=== PATIENT | female | born 1935 | race African-American/Black ===

== ENCOUNTER 2016-12-23 04:29 | Inpatient (IN) | payer MEDICARE, OTHER ==
[~2016-12-23] VITALS: Ht 167.6 cm; Wt 59.0 kg
[2016-12-23] VITALS (7 sets, daily range): BP systolic 102–141; BP diastolic 59–106
[~2016-12-23 04:29] MED LIST: ASPIRIN81 MG ORAL; BUDESONIDE0.25 MG/2 IH; DOCUSATE SODIU100 M2 ORAL; DULCOLAX10 MG RC; DUONEB 0.5-3(2.53 ML HHN; FLEET ENEMA133 M1 RC; FUROSEMIDE40 MG ORAL; LASIX; LISINOPRIL; MILK OF MA400 MG/51 ORAL; NKM; NORCO 5-325 TA1 EAC1 ORAL; NORVASC; PLAVIX75 MG ORAL; PREDNISONE; PROMOD946 ML PO; PROTONIX40 MG ORAL; TYLENOL325 MG ORAL; VICODIN; VITAMIN C500 M7 PO; ZINC SULFATE220 M2 ORAL
[2016-12-23] MEDS ORDERED: Albuterol ud Inhalation ONE (04:35)
[2016-12-23] MEDS ORDERED: Ipratropium 0.02% Inh Soln 2.5ml UD ONE (04:35)
[2016-12-23] MEDS ORDERED: Ipratropium 0.02% Inh Soln 2.5ml UD HHN ONE (04:45)
[2016-12-23] MEDS ORDERED: Solu-MEDROL 125mg Inj IVP ONE (04:45)
[2016-12-23] MEDS ORDERED: Albuterol ud Inhalation HHN ONE ×2 (04:45→06:00)
[2016-12-23 05:03] LABS: BASOPHILS % (AUTO) 0.7 % (0.0-2.0); EOSINOPHILS % (AUTO) 0.3 % (0.0-3.0); LYMPHOCYTES % (AUTO) 16.7 % (20.0-45.0); MEAN CORPUSCULAR HEMOGLOBIN 23.9 PG (27.0-31.0); MEAN CORPUSCULAR HGB CONC 29.3 G/DL (32.0-36.0); MEAN CORPUSCULAR VOLUME 82 FL (80-99); MEAN PLATELET VOLUME 9.1 FL (6.5-10.1); MONOCYTES % (AUTO) 5.1 % (1.0-10.0); NEUTROPHILS % (AUTO) 77.2 % (45.0-75.0); PLATELET COUNT 199 K/UL (150-450); RED BLOOD COUNT 5.37 M/UL (4.20-5.40); RED CELL DISTRIBUTION WIDTH 18.2 % (11.6-14.8)
[2016-12-23 05:20] LABS: REFLEX LACTIC ACID YES OR NO YES
[2016-12-23 05:44] LABS: APPEARANCE,URINE CLEAR; KETONES,URINE 1+ (NEGATIVE); LEUKOCYTE ESTERASE ,URINE 1+ (NEGATIVE); NITRITE,URINE NEGATIVE (NEGATIVE); PH,URINE 5 (4.5-8.0); PROTEIN,URINE 2+ (NEGATIVE); UROBILINOGEN,URINE NORMAL MG/DL (0.0-1.0)
[2016-12-23] MEDS ORDERED: Diltiazem 25mg/5ml IV ONE ×3 (06:00→06:30)
[2016-12-23 06:03] LABS: ALANINE AMINOTRANSFERASE 7 U/L (3-33); ALBUMIN/GLOBULIN RATIO 1.1 (1.0-2.7); ANION GAP 17 (5-15); ASPARTATE AMINO TRANSFERASE 22 U/L (5-40); CALCIUM 9.6 mg/dL (8.6-10.2); CARBON DIOXIDE 33 mEQ/L (20-30); CHLORIDE 96 mEQ/L (98-107); HEMOLYSIS 1; POTASSIUM 4.5 mEQ/L (3.4-4.9); SODIUM 146 mEQ/L (135-145); TOTAL PROTEIN 7.6 g/dL (6.6-8.7)
[2016-12-23 06:04] LABS: AMORPHOUS SEDIMENT,UR MODERATE /LPF; BACTERIA,URINE FEW /HPF; SQUAMOUS EPITHELIAL CELL,UR FEW /LPF (NONE/OCC); WBC,URINE 0-2 /HPF (0 - 2)
[2016-12-23 06:05] LABS: TROPONIN I < 0.30 ng/mL (<=0.30)
[2016-12-23 06:14] LABS: CKMB 5.9 ng/mL (< 3.8)
--- NOTE | 2016-12-23 06:26 | Emergency Room Report ---
History of Present Illness General Chief Complaint: Dyspnea/Respdistress Source: Patient, Medical Record, EMS Present Illness HPI This is an 81-year-old debilitated female from [place] with history of COPD. She presents with shortness of breath started today. No fever or chills. No nausea no vomiting. No chest pain. Coughing and wheezing. Per EMS she was hypoxic. Denies any other complaint. Allergies: Coded Allergies: PENICILLINS (Verified Allergy, Unknown, 03/22/09) Patient History Past Medical History: see triage record, old chart reviewed, HTN, COPD Past Surgical History: other Pertinent Family History: none Social History: Denies: smoking Now: No Immunizations: other Reviewed Nursing Documentation: PMH: Agreed, PSxH: Agreed Nursing Documentation-PMH Hx Cardiac Problems: Yes Hx Hypertension: Yes Hx Pacemaker: Yes - Left Upper Chest Hx COPD: Yes Hx Cancer: No Hx Gastrointestinal Problems: Yes Hx Neurological Problems: No Review of Systems Eye: Denies: blurred vision, eye pain ENT: Denies: ear pain, nose congestion, throat swelling Respiratory: Reports: shortness of breath, wheezing Cardiovascular: Denies: chest pain, palpitations Gastrointestinal: Denies: abdominal pain, diarrhea, nausea, vomiting Musculoskeletal: Denies: back pain, joint pain Skin: Denies: rash Neurological: Denies: headache, numbness Endocrine: Denies: increased thirst, increased urine Hematologic/Lymphatic: Denies: easy bruising All Other Systems: negative except mentioned in HPI Physical Exam Vital Signs Date Time Temp Pulse Resp B/P Pulse Ox O2 Delivery O2 Flow Rate FiO2 12/23/16 04:37 97.2 138 38 155/88 92 8.0 12/23/16 04:45 Nasal Cannula 32 vitals with tachycardia Sp02 EP Interpretation: abnormal General Appearance: moderate distress, cachetic, thin, Chronically Ill Head: normocephalic, atraumatic Eyes: bilateral eye EOMI, bilateral eye PERRL ENT: hearing grossly normal, normal pharynx Neck: full range of motion, supple, no meningismus Respiratory: chest non-tender, respiratory distress, decreased breath sounds, wheezing Cardiovascular #1: no murmur, tachycardia Gastrointestinal: normal bowel sounds, non tender, no mass, no organomegaly, no bruit, non-distended Musculoskeletal: back normal, normal range of motion Psychiatric: mood/affect normal Skin: warm/dry Procedures Critical Care Time Critical Care Time Critical care is mandated in this patient who presented with respiratory distress and rapid afib. Patient require my urgent intervention to attenuate the risks of metabolic collapse which may lead to cardiovascular collapse and . Critical care time is 35 minutes excluding any reportable procedure. Critical care time included evaluation, multiple reevaluation, looking at old charts, interpreting laboratory and diagnostic data, discussing case with patient and family and consultants, and charting. Medical Decision Making Diagnostic Impression: Primary Impression: COPD (chronic obstructive pulmonary disease) Qualified Codes: J42 - Unspecified chronic bronchitis Additional Impressions: Respiratory distress Rapid atrial fibrillation Proteinuria ER Course Patient presents with COPD exacerbation. She looks euvolemic said her fluid overloaded. Chest x-ray showed no infiltrate. She does have cardiomegaly and pacemaker. Antibiotic started. heart rate elevated may be a combination of rapid A. fib and albuterol. Heart rate better with Cardizem. Wheezing improved. Will admit for further workup and antibiotics. I discussed with her primary care DrElena Lab Results Impression labs unremarkable EKG Diagnostic Results Rate: tachycardiac Rhythm: other - Rapid atrial fibrillation ST Segments: other - Nonspecific ST changes Rhythm Strip Diag. Results EP Interpretation: yes Rate: 100 Rhythm: no PVC's, no ectopy, other - afib Chest X-Ray Diagnostic Results EP Interpretation: Yes Findings: no consolidation, no effusion, no pneumothorax, no acute cardiopulmonary disease Number of Views: 1 Last Vital Signs Date Time Temp Pulse Resp B/P Pulse Ox O2 Delivery O2 Flow Rate FiO2 12/23/16 06:21 132 113/78 12/23/16 06:08 25 100 Nasal Cannula 3.0 32 12/23/16 05:00 97.2 Status: improved Disposition: ADMITTED INPATIENT Condition: Serious Referrals: KJ DUDLEY (PCP) ISABEL MILLER M.D. Dec 23, 2016 06:26
[2016-12-23] MEDS ORDERED: Levalbuterol Inh UD 1.25mg/0.5ml HHN ONE (07:30)
[2016-12-23] MEDS ORDERED: Levalbuterol Inh UD 1.25mg/0.5ml HHN PRN (08:30)
[2016-12-23] MEDS ORDERED: LORazepam Inj 2mg/ml 1ml IV PRN (10:45)
[2016-12-23] MEDS ORDERED: Promethazine/Codeine 5ml UD ORAL PRN (10:45)
[2016-12-23] MEDS ORDERED: Ketorolac 30mg Inj IV PRN (10:45)
[2016-12-23] MEDS ORDERED: Morphine Sulfate 2mg/ml Inj IVP PRN (10:45)
[2016-12-23] MEDS ORDERED: Nitroglycerin Subl 0.4mg tab (Bottle Of 25) SL PRN (10:45)
--- NOTE | 2016-12-23 10:52 | Consultation ---
History of Present Illness General Date patient seen: Dec 23, 2016 Chief Complaint: Dyspnea/Respdistress Referring physician: Dr. Reddy Reason for Consultation: Dyspnea Present Illness HPI 81-year-old female with hx of end stage COPD, cardiomyopathy, debilitated She presents with shortness of breath started today coughing and wheezing. Per EMS she was hypoxic. Denies any other complaint. She was dyspnic but refusing BIPAP and intubation. she is visibly short of breath but doesn't want to try the bipap. Allergies: Coded Allergies: PENICILLINS (Verified Allergy, Unknown, 03/22/09) Medication History Scheduled Ascorbate Calcium (Vitamin C), 500 MG PO DAILY, (Reported) Aspirin* (Aspirin*), 81 MG ORAL DAILY, (Reported) Budesonide (Budesonide), 0.25 MG IH BID, (Reported) Clopidogrel Bisulfate* (Plavix*), 75 MG ORAL DAILY, (Reported) Docusate Sodium (Docusate Sodium), 100 MG ORAL DAILY, (Reported) Furosemide* (Lasix*), 40 MG ORAL DAILY, (Reported) No Known Medications* (NKM - No Known Medications*), 0 ., (Reported) Pantoprazole* (Protonix*), 40 MG ORAL ACBREAKFAST, (Reported) Protein Supplement (Promod), 30 ML PO DAILY, (Reported) Zinc Sulfate (Zinc Sulfate), 220 MG ORAL DAILY, (Reported) Scheduled PRN Acetaminophen (Tylenol), 650 MG ORAL Q4HR PRN for Fever/Headache/Mild Pain, ( Reported) Hydrocodone Bit/Acetaminophen 5-325* ([place] 5-325 Tablet*), 1 TAB ORAL Q6HR PRN for Moderate Pain (Pain Scale 4-6), (Reported) Ipratropium/Albuterol Sulfate (DuoNeb 0.5-3(2.5)mg/3ml), 3 ML HHN Q8HR PRN for Shortness of Breath, (Reported) Magnesium Hydroxide* (Milk Of Magnesia*), 30 ML ORAL QHS PRN for Constipation, ( Reported) Na Phos,M-B/Na Phos,Di-Ba (Fleet Enema), 133 ML RC Q2 DAYS PRN for Constipation, (Reported) Miscellaneous Medications Bisacodyl (Dulcolax), 10 MG RC, (Reported) Patient History Healthcare decision maker N Resuscitation status Advanced Directive on File Past Medical/Surgical History Past Medical/Surgical History: (1) COPD (chronic obstructive pulmonary disease) (2) Respiratory distress (3) ACS (acute coronary syndrome) Review of Systems Constitutional: Reports: malaise, weakness Respiratory: Reports: SAPP, shortness of breath, wheezing Physical Exam General Appearance: cachetic Lines, tubes and drains: peripheral HEENT: normocephalic, atraumatic Neck: non-tender, normal alignment Respiratory/Chest: chest wall non-tender, lungs clear Cardiovascular/Chest: normal peripheral pulses Abdomen: non tender Genitourinary/Rectal: normal genital exam, heme negative stool Extremities: normal range of motion Skin Exam: normal pigmentation Last 24 Hour Vital Signs Date Time Temp Pulse Resp B/P Pulse Ox O2 Delivery O2 Flow Rate FiO2 12/23/16 10:02 96 Nasal Cannula 3.0 12/23/16 10:01 Nasal Cannula 3.0 12/23/16 09:22 97.5 118 25 110/59 96 Nasal Cannula 3.0 32 12/23/16 09:15 97.5 116 20 135/70 95 Nasal Cannula 3.0 12/23/16 09:03 116 30 100 Nasal Cannula 3.0 12/23/16 08:56 118 31 94 Nasal Cannula 3.0 12/23/16 08:16 97.5 118 25 110/59 96 Nasal Cannula 3.0 32 12/23/16 08:13 118 25 Nasal Cannula 2.0 96 12/23/16 07:37 118 24 100 Nasal Cannula 3.0 12/23/16 07:29 120 22 95 Nasal Cannula 3.0 12/23/16 07:00 97.5 122 21 102/71 100 Nasal Cannula 3.0 12/23/16 06:33 125 102/71 12/23/16 06:21 132 113/78 12/23/16 06:08 143 25 100 Nasal Cannula 3.0 32 12/23/16 06:01 137 140/102 12/23/16 06:00 139 25 98 Nasal Cannula 3.0 32 12/23/16 05:00 97.2 138 25 141/106 100 Nasal Cannula 3.0 32 12/23/16 05:00 138 25 Nasal Cannula 3.0 12/23/16 04:56 140 25 100 Nasal Cannula 3.0 32 12/23/16 04:45 130 25 Nasal Cannula 3.0 32 12/23/16 04:45 130 25 98 Nasal Cannula 3.0 32 12/23/16 04:37 97.2 138 38 155/88 92 8.0 Intake and Output 12/22/16 12/23/16 19:00 07:00 Intake Total 100 ml Balance 100 ml Intake IV Total 100 ml # Voids 1 Laboratory Tests Test 12/23/16 04:45 12/23/16 05:03 White Blood Count 10.0 K/UL (4.8-10.8) Red Blood Count 5.37 M/UL (4.20-5.40) Hemoglobin 12.9 G/DL (12.0-16.0) Hematocrit 43.9 % (37.0-47.0) Mean Corpuscular Volume 82 FL (80-99) Mean Corpuscular Hemoglobin 23.9 PG (27.0-31.0) L Mean Corpuscular Hemoglobin Concent 29.3 G/DL (32.0-36.0) L Red Cell Distribution Width 18.2 % (11.6-14.8) H Platelet Count 199 K/UL (150-450) Mean Platelet Volume 9.1 FL (6.5-10.1) Neutrophils (%) (Auto) 77.2 % (45.0-75.0) H Lymphocytes (%) (Auto) 16.7 % (20.0-45.0) L Monocytes (%) (Auto) 5.1 % (1.0-10.0) Eosinophils (%) (Auto) 0.3 % (0.0-3.0) Basophils (%) (Auto) 0.7 % (0.0-2.0) Sodium Level 146 mEQ/L (135-145) H Potassium Level 4.5 mEQ/L (3.4-4.9) Chloride Level 96 mEQ/L (98-107) L Carbon Dioxide Level 33 mEQ/L (20-30) H Anion Gap 17 (5-15) H Blood Urea Nitrogen 15 mg/dL (7-23) Creatinine 1.0 mg/dL (0.5-0.9) H Estimat Glomerular Filtration Rate mL/min (>60) Glucose Level 149 mg/dL (74-106) H Lactic Acid Level 2.10 mmol/L (0.66-2.22) Calcium Level 9.6 mg/dL (8.6-10.2) Total Bilirubin 0.4 mg/dL (0.0-1.2) Aspartate Amino Transf (AST/SGOT) 22 U/L (5-40) Alanine Aminotransferase (ALT/SGPT) 7 U/L (3-33) Alkaline Phosphatase 113 U/L (35-104) H Total Creatine Kinase 122 U/L (26-140) Creatine Kinase MB 5.9 ng/mL (< 3.8) H Creatine Kinase MB Relative Index 4.8 Troponin I < 0.30 ng/mL (<=0.30) Pro-B-Type Natriuretic Peptide 2898 pg/mL (0-450) H Total Protein 7.6 g/dL (6.6-8.7) Albumin 4.0 g/dL (3.5-5.2) Globulin 3.6 g/dL Albumin/Globulin Ratio 1.1 (1.0-2.7) Urine Color Yellow Urine Appearance Clear Urine pH 5 (4.5-8.0) Urine Specific [place] 1.025 (1.005-1.035) Urine Protein 2+ (NEGATIVE) H Urine Glucose (UA) Negative (NEGATIVE) Urine Ketones 1+ (NEGATIVE) H Urine Occult Blood 3+ (NEGATIVE) H Urine Nitrite Negative (NEGATIVE) Urine Bilirubin Negative (NEGATIVE) Urine Urobilinogen Normal MG/DL (0.0-1.0) Urine Leukocyte Esterase 1+ (NEGATIVE) H Urine RBC 2-4 /HPF (0 - 2) H Urine WBC 0-2 /HPF (0 - 2) Urine Squamous Epithelial Cells Few /LPF (NONE/OCC) Urine Amorphous Sediment Moderate /LPF (NONE) H Urine Bacteria Few /HPF (NONE) Height (Feet): 5 Height (Inches): 6.00 Weight (Pounds): 130 Medications Current Medications Medications (Trade) Dose Ordered Sig/Katarzyna Route PRN Reason Start Time Stop Time Status Last Admin Dose Admin Albuterol/ Ipratropium (DuoNeb 0.5-3(2.5)mg/3ml) 3 ml EVERY 4 HOURS PRN HHN dyspnea 12/23/16 10:45 12/28/16 10:44 Aztreonam 1 gm/ Sodium Chloride 55 ml @ 110 mls/hr EVERY 8 HOURS IVPB 12/23/16 14:00 12/30/16 13:59 UNV Dextrose STAT PRN IV Hypoglycemia 12/23/16 10:45 01/22/17 10:44 Furosemide (Lasix) 40 mg EVERY 12 HOURS IV 12/23/16 10:45 01/22/17 10:44 UNV Heparin Sodium (Porcine) (Heparin 5000 units/ml) 5,000 units EVERY 12 HOURS SUBQ 12/23/16 21:00 01/22/17 20:59 Insulin Aspart (NovoLOG) BEFORE MEALS AND HS SUBQ 12/23/16 11:30 01/22/17 11:29 Ketorolac Tromethamine (Toradol 30mg) 30 mg EVERY 8 HOURS PRN IV moderate pain 4-6 12/23/16 10:45 12/28/16 10:44 Levofloxacin 100 ml @ 100 mls/hr Q24H IVPB 12/23/16 10:45 12/30/16 10:44 UNV Lorazepam (Ativan 2mg/ml 1ml) 0.5 mg Q4H PRN IV For Anxiety 12/23/16 10:45 12/30/16 10:44 Methylprednisolone Sodium Succinate (Solu-MEDROL) 60 mg EVERY 6 HOURS IV 12/23/16 12:00 01/22/17 11:59 Morphine Sulfate (Morphine Sulfate) 2 mg EVERY 4 HOURS PRN IVP severe pain 7-10 12/23/16 10:45 12/30/16 10:44 Nitroglycerin (Ntg) 0.4 mg Q5M X 3 DOSES PRN SL Prn Chest Pain 12/23/16 10:45 01/22/17 10:44 Ondansetron HCl (Zofran) 4 mg Q6H PRN IVP Nausea & Vomiting 12/23/16 10:45 01/22/17 10:44 Promethazine HCl/ Codeine (Phenergan with Codeine) 5 ml EVERY 6 HOURS PRN ORAL cough 12/23/16 10:45 01/22/17 10:44 Temazepam (Restoril) 15 mg HSPRN PRN ORAL Insomnia 12/23/16 10:45 12/30/16 10:44 Theophylline (Nilo-Dur) 100 mg EVERY 12 HOURS ORAL 12/23/16 21:00 01/22/17 20:59 Vancomycin HCl/ Dextrose (Vancomycin/D5W) 275 ml @ 183.3 mls/ hr Q8HR IVPB 12/23/16 14:00 12/28/16 13:59 UNV Assessment/Plan Problem List: (1) Respiratory distress ICD Codes: R06.00 - Dyspnea, unspecified SNOMED: 913084923 (2) COPD exacerbation ICD Codes: J44.1 - Chronic obstructive pulmonary disease with (acute) exacerbation SNOMED: 946740288, 369015447 (3) Severe protein-calorie malnutrition ICD Codes: E43 - Unspecified severe protein-calorie malnutrition SNOMED: 363236238 (4) COPD (chronic obstructive pulmonary disease) ICD Codes: J44.9 - Chronic obstructive pulmonary disease, unspecified SNOMED: 44627301 Qualifiers: Qualified Codes: J42 - Unspecified chronic bronchitis Assessment/Plan steroids, check sputum IV antibiotics echo/ cardio evaluation f/u cxr and BNP cardiology called. MUKUND TANNER Dec 23, 2016 10:52
--- NOTE | 2016-12-23 10:58 | Diagnostic Imaging Report ---
Indication: Dyspnea Comparison: 06/13/16 A single view chest radiograph was obtained. Findings: Lungs are hyperexpanded. There is a pacemaker present. The heart is enlarged. Bones are osteopenic. Impression: No acute disease
--- NOTE | 2016-12-23 11:09 | Cardiology Progress Note ---
Assessment/Plan Assessment/Plan afib rvr duratrion unkown ([facility] 05/2016) copd with exacerbation cad hs ppi hs cm hx? cardizem pos qid as well as ivp with dig need to consider anticoagulation when and if safe echo seril ekg and enzyme sri diureiss diamox may be needed if bicarb increses sig may need pacer interrogation [id number] Objective Last 24 Hour Vital Signs Date Time Temp Pulse Resp B/P Pulse Ox O2 Delivery O2 Flow Rate FiO2 12/23/16 10:02 96 Nasal Cannula 3.0 12/23/16 10:01 Nasal Cannula 3.0 12/23/16 09:22 97.5 118 25 110/59 96 Nasal Cannula 3.0 32 12/23/16 09:15 97.5 116 20 135/70 95 Nasal Cannula 3.0 12/23/16 09:03 116 30 100 Nasal Cannula 3.0 12/23/16 08:56 118 31 94 Nasal Cannula 3.0 12/23/16 08:16 97.5 118 25 110/59 96 Nasal Cannula 3.0 32 12/23/16 08:13 118 25 Nasal Cannula 2.0 96 12/23/16 07:37 118 24 100 Nasal Cannula 3.0 12/23/16 07:29 120 22 95 Nasal Cannula 3.0 12/23/16 07:00 97.5 122 21 102/71 100 Nasal Cannula 3.0 12/23/16 06:33 125 102/71 12/23/16 06:21 132 113/78 12/23/16 06:08 143 25 100 Nasal Cannula 3.0 32 12/23/16 06:01 137 140/102 12/23/16 06:00 139 25 98 Nasal Cannula 3.0 32 12/23/16 05:00 97.2 138 25 141/106 100 Nasal Cannula 3.0 32 12/23/16 05:00 138 25 Nasal Cannula 3.0 12/23/16 04:56 140 25 100 Nasal Cannula 3.0 32 12/23/16 04:45 130 25 Nasal Cannula 3.0 32 12/23/16 04:45 130 25 98 Nasal Cannula 3.0 32 12/23/16 04:37 97.2 138 38 155/88 92 8.0 Intake and Output 12/22/16 12/23/16 19:00 07:00 Intake Total 100 ml Balance 100 ml Intake IV Total 100 ml # Voids 1 Laboratory Tests Test 12/23/16 04:45 12/23/16 05:03 12/23/16 10:25 White Blood Count 10.0 K/UL (4.8-10.8) Red Blood Count 5.37 M/UL (4.20-5.40) Hemoglobin 12.9 G/DL (12.0-16.0) Hematocrit 43.9 % (37.0-47.0) Mean Corpuscular Volume 82 FL (80-99) Mean Corpuscular Hemoglobin 23.9 PG (27.0-31.0) L Mean Corpuscular Hemoglobin Concent 29.3 G/DL (32.0-36.0) L Red Cell Distribution Width 18.2 % (11.6-14.8) H Platelet Count 199 K/UL (150-450) Mean Platelet Volume 9.1 FL (6.5-10.1) Neutrophils (%) (Auto) 77.2 % (45.0-75.0) H Lymphocytes (%) (Auto) 16.7 % (20.0-45.0) L Monocytes (%) (Auto) 5.1 % (1.0-10.0) Eosinophils (%) (Auto) 0.3 % (0.0-3.0) Basophils (%) (Auto) 0.7 % (0.0-2.0) Sodium Level 146 mEQ/L (135-145) H Potassium Level 4.5 mEQ/L (3.4-4.9) Chloride Level 96 mEQ/L (98-107) L Carbon Dioxide Level 33 mEQ/L (20-30) H Anion Gap 17 (5-15) H Blood Urea Nitrogen 15 mg/dL (7-23) Creatinine 1.0 mg/dL (0.5-0.9) H Estimat Glomerular Filtration Rate mL/min (>60) Glucose Level 149 mg/dL (74-106) H Lactic Acid Level 2.10 mmol/L (0.66-2.22) Pending Calcium Level 9.6 mg/dL (8.6-10.2) Total Bilirubin 0.4 mg/dL (0.0-1.2) Aspartate Amino Transf (AST/SGOT) 22 U/L (5-40) Alanine Aminotransferase (ALT/SGPT) 7 U/L (3-33) Alkaline Phosphatase 113 U/L (35-104) H Total Creatine Kinase 122 U/L (26-140) Creatine Kinase MB 5.9 ng/mL (< 3.8) H Creatine Kinase MB Relative Index 4.8 Troponin I < 0.30 ng/mL (<=0.30) Pro-B-Type Natriuretic Peptide 2898 pg/mL (0-450) H Total Protein 7.6 g/dL (6.6-8.7) Albumin 4.0 g/dL (3.5-5.2) Globulin 3.6 g/dL Albumin/Globulin Ratio 1.1 (1.0-2.7) Urine Color Yellow Urine Appearance Clear Urine pH 5 (4.5-8.0) Urine Specific [place] 1.025 (1.005-1.035) Urine Protein 2+ (NEGATIVE) H Urine Glucose (UA) Negative (NEGATIVE) Urine Ketones 1+ (NEGATIVE) H Urine Occult Blood 3+ (NEGATIVE) H Urine Nitrite Negative (NEGATIVE) Urine Bilirubin Negative (NEGATIVE) Urine Urobilinogen Normal MG/DL (0.0-1.0) Urine Leukocyte Esterase 1+ (NEGATIVE) H Urine RBC 2-4 /HPF (0 - 2) H Urine WBC 0-2 /HPF (0 - 2) Urine Squamous Epithelial Cells Few /LPF (NONE/OCC) Urine Amorphous Sediment Moderate /LPF (NONE) H Urine Bacteria Few /HPF (NONE) FARIBA GIORDANO Dec 23, 2016 11:09
[2016-12-23] MEDS ORDERED: AMBIEN5 MG ORAL (11:21)
[2016-12-23] MEDS ORDERED: Digoxin 0.5mg/2ml Inj IVP ONE (11:30)
[2016-12-23] MEDS: NovoLOG Insulin Flexpen SUBQ SCH ×4 (11:30→20:54)
[2016-12-23] MEDS: CefTAZidime 1 GM in D5W 55 ML IVP SCH ×3 (12:00→21:10)
[2016-12-23] MEDS: Solu-MEDROL 125mg Inj IV SCH ×3 (12:00→17:36)
[2016-12-23] MEDS ORDERED: Vancomycin 1.25 GM in D5W 275 ML IVPB ONE (13:00)
[2016-12-23] MEDS: DuoNeb 0.5-3(2.5)mg/3ml neb HHN PRN ×2 (14:35→18:37)
--- NOTE | 2016-12-23 18:00 | History & Physical ---
History and Physical History & Physicial Dictated for Int Med-Dr Collins no. [id number]. IMELDA COLEMAN Dec 23, 2016 18:00
--- NOTE | 2016-12-23 19:48 | Consultation ---
DATE OF CONSULTATION: 12/23/2016 CARDIOLOGY CONSULTATION CONSULTING PHYSICIAN: Hernando Manuel M.D. ATTENDING PHYSICIAN: Erick Beatty M.D. REFERRING PHYSICIAN: Pastora Nixon M.D. REASON FOR REFERRAL: Shortness of breath, atrial fibrillation with rapid ventricular response. HISTORY OF PRESENT ILLNESS: This is an elderly 81-year-old female with history of multiple medical problems as stated below. The patient presented to the hospital because of increasing shortness of breath and she resides in a convalescent facility, was not doing well, and was transferred because of those issues to the emergency room here at [facility]. She does not really have any chest pain. She denies any palpitations. No PND. No orthopnea. She uses two pillows. She does not really stand or walk. She is able to sit up in the chair, but she denies any dizziness when she does so. She does have coughing. No wheezing. PAST MEDICAL HISTORY: Positive for according to the convalescent facility, history of COPD with exacerbation , coronary artery disease although the exact nature is not known, history of pacemaker, history of pulmonary hypertension, history of cardiomyopathy, history of DVT and embolism, history of gastroesophageal reflux disease, protein-calorie malnutrition has been listed as her symptoms. ALLERGIES: She states she is allergic to penicillin. SOCIAL HISTORY: She tells me that she smoked for about 40 years up to 2 packs a day and quit that approximately two years ago. Does not drink alcoholic beverages. Although she tells me she lives with her that certainly is not true. MEDICATIONS: [facility] . She takes inhalers, Plavix 75 mg, Colace, Dulcolax, iron tablets, 20 mg a day, hydrocodone, Atrovent, albuterol solution, lactulose, milk of magnesia, Protonix, Proma, Tylenol, Robitussin, vitamin C, and zinc sulfate. REVIEW OF SYSTEMS: Gastrointestinal: She denies. Pulmonary: Positive for coughing. No sputum production. Constitutional: She has been feeling chills, but no fevers. Neurologic: Negative. PHYSICAL EXAMINATION: GENERAL: Shows her to be elderly female in respiratory discomfort and somewhat of although not distressed. NECK: Supple. No jugular venous distention. She is tachypneic. LUNGS: Decreased air entry bilaterally. CARDIAC: Irregularly irregular. Tachycardic. No RV lifts, heaves, or thrills noted. ABDOMEN: Soft and nontender. Positive bowel sounds. EXTREMITIES: There is no clubbing, cyanosis, or edema. NEUROLOGIC: She is awake, alert, responsive, and in no apparent respiratory distress. LABORATORY AND DIAGNOSTIC DATA: Her white count of 10, hemoglobin 12.9, and platelet count 199,000. No recent blood gases. Sodium 142, potassium 4.5, chloride 96, bicarbonate 32, BUN of 15, creatinine 1.0, glucose of 153, and calcium is 9.3. Troponin less than 0.3. ProBNP is 2800. Albumin 4.0. Lactic acid 2.1. INR 1. PTT of 27. Urinalysis, 0 to 2 WBCs. Chest x-ray interpreted by the radiologist as no acute disease, hyperexpanded, pacemaker in place, the heart is enlarged, and the bones are osteopenic. EKG shows atrial fibrillation with rapid ventricular response. She has T-wave inversions in multiple leads including more severely noted in V4 through V6. These EKG changes were not present on her EKG back in May 2016, at which time, she was in sinus. The duration of atrial fibrillation unfortunately is unknown. ASSESSMENT AND PLAN: 1. Atrial fibrillation with rapid ventricular response, the duration unknown. 2. Chronic obstructive pulmonary disease with exacerbation. 3. History of permanent pacemaker implantation. 4. Reported history of cardiomyopathy. 5. History of coronary artery disease, unknown detail. Dr. Nixon, this patient was seen in cardiac consultation. The patient requires medication for heart rate control. We will repeat cardiac enzymes. We will administer low dose of diltiazem and sri diuretics. Her proBNP is not significantly elevated. If possible, avoid use of the beta-agonist inhalers to which the patient may respond by becoming more tachycardic. Echocardiogram will be ordered. Repeat EKG and repeat cardiac enzymes will be ordered as well. the patient is DNR. Hernando Manuel M.D. DR: Andres JOB#: [id number] CC:
[2016-12-23] MEDS ORDERED: Heparin 5000 units/ml inj SUBQ SCH (21:00)
[2016-12-23] MEDS ORDERED: Theophylline ER 100mg ORAL SCH (21:00)
--- NOTE | 2016-12-23 22:08 | History and Physical Report ---
DATE OF ADMISSION: 12/23/[address] Beatty. CHIEF COMPLAINT: The patient is an 81-year-old female, who presents with a chief complaint of shortness of breath. HISTORY OF PRESENT ILLNESS: The patient is a resident of [facility]. According to staff at [facility], the patient began to experience shortness of breath on 12/22/2016. EMS was called. The patient was found to be hypoxic. The patient presented to [facility]. The patient was found to be in respiratory distress. The patient was admitted for shortness of breath secondary to probable chronic obstructive pulmonary disease exacerbation. PAST MEDICAL HISTORY: Significant for, 1. Chronic obstructive pulmonary disease. 2. Hypertension. 3. Sick sinus syndrome. PAST SURGICAL HISTORY: Significant for, 1. Pacemaker implantation. 2. Hip surgery. 3. Back surgery. CURRENT MEDICATIONS: 1. Ambien 5 mg one tablet p.o. at bedtime p.r.n. 2. Aspirin 81 mg one tablet p.o. daily. 3. Albuterol nebulized q.4 hours p.r.n. 4. Clopidogrel 75 mg one tablet p.o. daily. 5. Iron sulfate 325 mg one tablet p.o. daily. 6. Lasix 20 mg one tablet p.o. daily. 7. [place] 5/325 mg one tablet p.o. q.6 hours p.r.n. 8. Atrovent nebulized q.6 hours p.r.n. 9. Lactulose 15 mL p.o. p.r.n. 10. Melatonin 3 mg one tab p.o. at bedtime. 11. Protonix 40 mg one tablet p.o. daily. 12. Tramadol 50 mg one tablet p.o. q.6 hours p.r.n. 13. Robitussin DM one teaspoon by p.o. q.4 hours p.r.n. ALLERGIES: Penicillin. SOCIAL HISTORY: The patient is single and denies tobacco or alcohol use. REVIEW OF SYSTEMS: Constitutional: The patient denies weight loss or weight gain. The patient denies fevers or chills. HEENT: The patient denies ear or throat pain. Cardiovascular: The patient denies palpitations or chest pain. Chest: The patient complains of shortness of breath as above. The patient denies wheezes. Abdomen: The patient denies nausea, vomiting, diarrhea, or constipation. Genitourinary: The patient denies dysuria or increased frequency of urination. Neuromuscular: The patient denies seizures or generalized weakness. Genitourinary: The patient denies dysuria or increased frequency of urination. Neuromuscular: The patient seizures or generalized weakness. PHYSICAL EXAMINATION: VITAL SIGNS: Temperature 97.4 degrees, respirations 19, pulse elevated at 120, blood pressure 130/83, and pulse ox 95% on three liters nasal cannula. GENERAL: The patient is thin-appearing female, who is in mild respiratory distress. HEENT: Eyes, pupils are equal and responsive to light and accommodation. Extraocular movements are intact. NECK: Supple without lymphadenopathy. CHEST/LUNGS: Diffuse wheezes bilaterally with few crackles at the bases. Otherwise, without wheezes or rales. CARDIOVASCULAR: Regular rhythm and rate. S1 and S2 are normal without murmurs, rubs, or gallops. ABDOMEN: Soft, nontender, and nondistended. Positive bowel sounds. No evidence of hepatosplenomegaly. Currently, no rebound or guarding noted. EXTREMITIES: Negative for clubbing, cyanosis, or edema. RECTAL: Refused. GENITAL: Refused. NEUROLOGIC: Cranial nerves II through XII are grossly intact without focal deficits. Motor strength is 5/5 bilaterally. Deep tendon reflexes are 2+ bilaterally plantar. LABORATORY STUDIES: WBC 10.2, hemoglobin 12.9, hematocrit 43.9, and platelets 199,000. Sodium 136, potassium 4.5, chloride 96, CO2 33, BUN 15, creatinine 1.0, and glucose 149. Troponin less than 0.3. BNP elevated at 2898. An EKG demonstrated atrial fibrillation with tachycardia at approximately 140 beats per minute. ASSESSMENT: This is a 81-year-old female. 1. New onset atrial fibrillation with rapid ventricular rate. 2. Congestive heart failure. 3. Shortness of breath. 4. Hypoxia. 5. Chronic obstructive pulmonary disease, acute exacerbation. 6. Hypertension. 7. Sick sinus syndrome. TREATMENT: 1. Atrial fibrillation with rapid ventricular rate/congestive heart failure. Cardiology consultation was obtained with Dr. Hernando Manuel. We will follow recommendations of Cardiology. An echocardiogram is pending. The patient has received digoxin in the emergency room. We will follow up recommendations of Cardiology. 2. Shortness of breath/hypoxia/chronic obstructive pulmonary disease. A Pulmonary consultation was obtained with Dr. Pastora Nixon. 3. Hypertension, the patient has been started on Cardizem in light of atrial fibrillation as above. 4. Sick sinus syndrome. The patient is status post pacemaker implantation. Ayo Reddy M.D. DR: MARCO JOB#: [id number] CC:
[2016-12-24] VITALS (7 sets, daily range): BP systolic 102–148; BP diastolic 63–79
[2016-12-24] MEDS: DuoNeb 0.5-3(2.5)mg/3ml neb HHN PRN ×4 (00:14→07:40)
[2016-12-24] MEDS: Solu-MEDROL 125mg Inj IV SCH ×2 (00:38→06:26)
[2016-12-24 04:43] LABS: MEAN CORPUSCULAR HEMOGLOBIN 24.9 PG (27.0-31.0); MEAN CORPUSCULAR HGB CONC 30.5 G/DL (32.0-36.0); MEAN CORPUSCULAR VOLUME 82 FL (80-99); MEAN PLATELET VOLUME 8.9 FL (6.5-10.1); PLATELET COUNT 193 K/UL (150-450); RED BLOOD COUNT 5.08 M/UL (4.20-5.40); WHITE BLOOD COUNT 9.9 K/UL (4.8-10.8)
[2016-12-24 05:51] LABS: TROPONIN I < 0.30 ng/mL (<=0.30)
[2016-12-24 06:25] LABS: ANION GAP 18 (5-15); CALCIUM 9.6 mg/dL (8.6-10.2); CARBON DIOXIDE 32 mEQ/L (20-30); CHLORIDE 95 mEQ/L (98-107); HEMOLYSIS 14; POTASSIUM 4.6 mEQ/L (3.4-4.9); SODIUM 145 mEQ/L (135-145)
[2016-12-24] MEDS: NovoLOG Insulin Flexpen SUBQ SCH (06:30)
[2016-12-24] MEDS ORDERED: DuoNeb 0.5-3(2.5)mg/3ml neb HHN SCH ×3 (07:00→11:00)
[2016-12-24] MEDS ORDERED: Nitroglycerin Subl 0.4mg tab (Bottle Of 25) SL PRN ×2 (07:15→08:15)
[2016-12-24] MEDS ORDERED: Theophylline ER 100mg ORAL SCH (09:00)
[2016-12-24] MEDS ORDERED: Morphine Sulfate 2mg/ml Inj IVP PRN ×3 (09:00→18:00)
[2016-12-24] MEDS: Theophylline ER 100mg ORAL SCH ×2 (10:13→21:00)
[2016-12-24] MEDS ORDERED: LORazepam Inj 2mg/ml 1ml IV PRN ×3 (10:45→14:45)
[2016-12-24 11:08] LABS: LYMPHOCYTES % (MANUAL) 4 % (20-45); NEUTROPHILS % (MANUAL) 94 % (45-75); TOTAL CELLS COUNTED 100
[2016-12-24 11:09] LABS: ANISOCYTOSIS 2+; BAND NEUTROPHILS % (MANUAL) 0 % (0-8); BASOPHILS % (MANUAL) 0 % (0-2); EOSINOPHILS % (MANUAL) 0 % (0-3); PLATELET ESTIMATE ADEQUATE; PLATELET MORPHOLOGY NORMAL
[2016-12-24] MEDS ORDERED: NovoLOG Insulin Flexpen SUBQ SCH ×2 (11:30)
[2016-12-24] MEDS ORDERED: Solu-MEDROL 125mg Inj IV SCH ×2 (12:00)
[2016-12-24] MEDS ORDERED: Promethazine/Codeine 5ml UD ORAL PRN ×2 (12:00)
--- NOTE | 2016-12-24 12:20 | Pulmonology Progress Note ---
Assessment/Plan Problems: (1) Respiratory distress (2) COPD exacerbation (3) Severe protein-calorie malnutrition (4) COPD (chronic obstructive pulmonary disease) Assessment/Plan Pt doesn't want most of her meds including steroids and antibiotics Continue respiratory treatment add morphine for dyspnea. med/surg Subjective ROS Limited/Unobtainable: Yes Interval Events: still short of breath, refusing most of the meds Allergies: Coded Allergies: PENICILLINS (Verified Allergy, Unknown, Rash, 12/23/16) Objective Last 24 Hour Vital Signs Date Time Temp Pulse Resp B/P Pulse Ox O2 Delivery O2 Flow Rate FiO2 12/24/16 11:38 97.0 119 26 135/63 94 Nasal Cannula 4.0 12/24/16 11:24 114 24 98 Nasal Cannula 4.0 12/24/16 11:18 36 12/24/16 11:16 117 26 89 Nasal Cannula 4.0 36 12/24/16 08:53 97 Nasal Cannula 4.0 12/24/16 08:00 116 12/24/16 07:55 116 26 98 Nasal Cannula 4.0 36 12/24/16 07:52 97.3 113 28 121/79 91 Nasal Cannula 4.0 12/24/16 07:46 36 12/24/16 07:44 112 24 90 Nasal Cannula 4.0 36 12/24/16 07:43 Nasal Cannula 4.0 36 12/24/16 07:42 90 Nasal Cannula 4.0 36 12/24/16 06:26 123 148/76 12/24/16 06:02 123 26 100 Nasal Cannula 4.0 12/24/16 06:00 97.2 123 32 148/76 94 Nasal Cannula 4.0 12/24/16 05:46 116 25 92 Nasal Cannula 3.0 32 12/24/16 04:00 124 12/24/16 04:00 97.2 123 32 148/76 94 Nasal Cannula 4.0 12/24/16 02:48 121 26 100 Nasal Cannula 3.0 32 12/24/16 02:47 119 25 96 Nasal Cannula 3.0 32 12/24/16 00:16 120 26 100 Nasal Cannula 3.0 32 12/24/16 00:10 118 24 96 Nasal Cannula 3.0 32 12/24/16 00:00 97.7 119 32 139/71 96 Nasal Cannula 4.0 12/23/16 20:00 126 12/23/16 20:00 97.8 130 25 123/92 95 Nasal Cannula 3.0 12/23/16 18:43 112 28 100 Nasal Cannula 3.0 12/23/16 18:37 116 22 96 Nasal Cannula 3.0 12/23/16 18:36 96 Nasal Cannula 3.0 12/23/16 18:36 Nasal Cannula 3.0 12/23/16 16:42 117 12/23/16 16:00 97.4 120 19 130/83 95 Nasal Cannula 3.0 12/23/16 15:59 107 31 95 Facial 30 12/23/16 14:36 107 28 100 Nasal Cannula 3.0 12/23/16 14:25 110 28 92 Nasal Cannula 3.0 12/23/16 14:09 118 125/76 12/23/16 12:27 118 Intake and Output 12/23/16 12/24/16 18:59 06:59 Intake Total 250 ml 60 ml Output Total 240 ml 450 ml Balance 10 ml -390 ml Intake Oral 150 ml 60 ml IV Total 100 ml Output Urine Total 240 ml 450 ml # Bowel Movements 1 1 General Appearance: cachetic HEENT: normocephalic, atraumatic Respiratory/Chest: respiratory distress, decreased breath sounds, accessory muscle use, crackles/rales Cardiovascular: normal peripheral pulses Abdomen: normal bowel sounds Extremities: no cyanosis Microbiology Date/Time Source Procedure Growth Status 12/23/16 04:37 Blood Blood Culture - Preliminary NO GROWTH AFTER 24 HOURS Resulted 12/23/16 04:20 Blood Blood Culture - Preliminary NO GROWTH AFTER 24 HOURS Resulted Laboratory Tests 12/24/16 03:35: White Blood Count 9.9, Red Blood Count 5.08, Hemoglobin 12.6, Hematocrit 41.5, Mean Corpuscular Volume 82, Mean Corpuscular Hemoglobin 24.9L, Mean Corpuscular Hemoglobin Concent 30.5L, Red Cell Distribution Width 18.0H, Platelet Count 193 , Mean Platelet Volume 8.9, Neutrophils (%) (Auto) , Lymphocytes (%) (Auto) , Monocytes (%) (Auto) , Eosinophils (%) (Auto) , Basophils (%) (Auto) , Differential Total Cells Counted 100, Neutrophils % (Manual) 94H, Lymphocytes % (Manual) 4L, Monocytes % (Manual) 2, Eosinophils % (Manual) 0, Basophils % ( Manual) 0, Band Neutrophils 0, Platelet Estimate Adequate, Platelet Morphology Normal, Anisocytosis 2+, Sodium Level 145, Potassium Level 4.6, Chloride Level 95L, Carbon Dioxide Level 32H, Anion Gap 18H, Blood Urea Nitrogen 28H, Creatinine 1.0H, Estimat Glomerular Filtration Rate , Glucose Level 157H, Calcium Level 9.6, Troponin I < 0.30, Pro-B-Type Natriuretic Peptide 7242H, Thyroid Stimulating Hormone (TSH) 0.042L Current Medications Medications (Trade) Dose Ordered Sig/Katarzyna Route PRN Reason Start Time Stop Time Status Last Admin Dose Admin Albuterol/ Ipratropium (DuoNeb 0.5-3(2.5)mg/3ml) 3 ml Q4HRT HHN 12/24/16 11:00 12/29/16 10:59 12/24/16 11:15 Dextrose (Dextrose 50%) STAT PRN IV Hypoglycemia 12/24/16 10:45 01/23/17 10:44 Diltiazem HCl (Cardizem) 60 mg EVERY 8 HOURS ORAL 12/24/16 14:00 01/23/17 13:59 Lorazepam (Ativan 2mg/ml 1ml) 0.5 mg Q4H PRN IV For Anxiety 12/24/16 10:45 12/31/16 10:44 Morphine Sulfate (Morphine Sulfate) 2 mg EVERY 4 HOURS PRN IVP severe pain 7-10 12/24/16 09:00 12/31/16 08:59 12/24/16 12:07 Morphine Sulfate (Morphine Sulfate) 2 mg Q4H PRN IVP dyspnea 12/24/16 12:15 12/31/16 12:14 UNV Nitroglycerin (Ntg) 0.4 mg Q5M X 3 DOSES PRN SL Prn Chest Pain 12/24/16 08:15 01/23/17 08:14 Ondansetron HCl (Zofran) 4 mg Q6H PRN IVP Nausea & Vomiting 12/24/16 10:45 01/23/17 10:44 Promethazine HCl/ Codeine (Phenergan with Codeine) 5 ml EVERY 6 HOURS PRN ORAL cough 12/24/16 12:00 01/23/17 11:59 Temazepam (Restoril) 15 mg HSPRN PRN ORAL Insomnia 12/24/16 10:45 12/31/16 10:44 Theophylline (Nilo-Dur) 100 mg EVERY 12 HOURS ORAL 12/24/16 10:30 01/23/17 10:29 12/24/16 10:13 MUKUND TANNER Dec 24, 2016 12:20
--- NOTE | 2016-12-24 12:55 | Internal Med Progress Note ---
Subjective Date of Service: Dec 24, 2016 Physician Name Imelda Coleman Attending Physician Erick Beatty MD Current Medications Medications (Trade) Dose Ordered Sig/Katarzyna Route PRN Reason Start Time Stop Time Status Last Admin Dose Admin Albuterol/ Ipratropium (DuoNeb 0.5-3(2.5)mg/3ml) 3 ml EVERY 2 HOURS PRN HHN dyspnea 12/24/16 14:00 12/29/16 13:59 Dextrose (Dextrose 50%) STAT PRN IV Hypoglycemia 12/24/16 10:45 01/23/17 10:44 Diltiazem HCl (Cardizem) 60 mg EVERY 8 HOURS ORAL 12/24/16 14:00 01/23/17 13:59 Lorazepam (Ativan 2mg/ml 1ml) 1 mg Q4H PRN IV For Anxiety 12/24/16 14:45 12/31/16 14:44 Morphine Sulfate (Morphine Sulfate) 2 mg EVERY 4 HOURS PRN IVP severe pain 7-10 12/24/16 09:00 12/31/16 08:59 12/24/16 12:07 Morphine Sulfate (Morphine Sulfate) 2 mg Q4H PRN IVP dyspnea 12/24/16 12:15 12/31/16 12:14 Nitroglycerin (Ntg) 0.4 mg Q5M X 3 DOSES PRN SL Prn Chest Pain 12/24/16 08:15 01/23/17 08:14 Ondansetron HCl (Zofran) 4 mg Q6H PRN IVP Nausea & Vomiting 12/24/16 10:45 01/23/17 10:44 Promethazine HCl/ Codeine (Phenergan with Codeine) 5 ml EVERY 6 HOURS PRN ORAL cough 12/24/16 12:00 01/23/17 11:59 Temazepam (Restoril) 15 mg HSPRN PRN ORAL Insomnia 12/24/16 10:45 12/31/16 10:44 Theophylline (Nilo-Dur) 100 mg EVERY 12 HOURS ORAL 12/24/16 10:30 01/23/17 10:29 12/24/16 10:13 Allergies: Coded Allergies: PENICILLINS (Verified Allergy, Unknown, Rash, 12/23/16) ROS Limited/Unobtainable: No Constitutional: Reports: no symptoms HEENT: Reports: no symptoms, nose pain Cardiovascular: Reports: no symptoms Respiratory: Reports: shortness of breath Gastrointestinal/Abdominal: Reports: no symptoms Genitourinary: Reports: no symptoms Neurologic/Psychiatric: Reports: no symptoms Subjective 81 YO F admitted for shortness of breath and COPD exacerbation. Cover for Int [facility]-Dr Beatty. Objective Last Vital Signs Date Time Temp Pulse Resp B/P Pulse Ox O2 Delivery O2 Flow Rate FiO2 12/24/16 11:38 97.0 119 26 135/63 94 Nasal Cannula 4.0 12/24/16 11:18 36 General Appearance: moderate distress, thin EENT: PERRL/EOMI, normal ENT inspection Neck: non-tender, normal alignment, supple Cardiovascular: no gallop/murmur, no JVD, tachycardia Respiratory/Chest: respiratory distress, crackles/rales, rhonchi - bilaterally , expiratory wheezing Abdomen: normal bowel sounds, non tender, soft, no organomegaly, no mass Extremities: normal range of motion Skin: normal pigmentation, warm/dry Laboratory Tests Test 12/24/16 03:35 White Blood Count 9.9 K/UL (4.8-10.8) Red Blood Count 5.08 M/UL (4.20-5.40) Hemoglobin 12.6 G/DL (12.0-16.0) Hematocrit 41.5 % (37.0-47.0) Mean Corpuscular Volume 82 FL (80-99) Mean Corpuscular Hemoglobin 24.9 PG (27.0-31.0) L Mean Corpuscular Hemoglobin Concent 30.5 G/DL (32.0-36.0) L Red Cell Distribution Width 18.0 % (11.6-14.8) H Platelet Count 193 K/UL (150-450) Mean Platelet Volume 8.9 FL (6.5-10.1) Neutrophils (%) (Auto) % (45.0-75.0) Lymphocytes (%) (Auto) % (20.0-45.0) Monocytes (%) (Auto) % (1.0-10.0) Eosinophils (%) (Auto) % (0.0-3.0) Basophils (%) (Auto) % (0.0-2.0) Differential Total Cells Counted 100 Neutrophils % (Manual) 94 % (45-75) H Lymphocytes % (Manual) 4 % (20-45) L Monocytes % (Manual) 2 % (1-10) Eosinophils % (Manual) 0 % (0-3) Basophils % (Manual) 0 % (0-2) Band Neutrophils 0 % (0-8) Platelet Estimate Adequate Platelet Morphology Normal Anisocytosis 2+ Sodium Level 145 mEQ/L (135-145) Potassium Level 4.6 mEQ/L (3.4-4.9) Chloride Level 95 mEQ/L (98-107) L Carbon Dioxide Level 32 mEQ/L (20-30) H Anion Gap 18 (5-15) H Blood Urea Nitrogen 28 mg/dL (7-23) H Creatinine 1.0 mg/dL (0.5-0.9) H Estimat Glomerular Filtration Rate mL/min (>60) Glucose Level 157 mg/dL (74-106) H Calcium Level 9.6 mg/dL (8.6-10.2) Troponin I < 0.30 ng/mL (<=0.30) Pro-B-Type Natriuretic Peptide 7242 pg/mL (0-450) H Thyroid Stimulating Hormone (TSH) 0.042 uIU/mL (0.300-4.500) Microbiology Date/Time Source Procedure Growth Status 12/23/16 04:37 Blood Blood Culture - Preliminary NO GROWTH AFTER 24 HOURS Resulted 12/23/16 04:20 Blood Blood Culture - Preliminary NO GROWTH AFTER 24 HOURS Resulted Intake and Output 12/23/16 12/24/16 19:00 07:00 Intake Total 250 ml 60 ml Output Total 240 ml 450 ml Balance 10 ml -390 ml Intake Oral 150 ml 60 ml IV Total 100 ml Output Urine Total 240 ml 450 ml # Bowel Movements 1 1 Assessment/Plan Problem List: (1) Shortness of breath (2) Respiratory failure (3) Hypoxia (4) HTN (hypertension) Assessment & Plan: Cont cardizem per cardiology (5) Sick sinus syndrome (6) COPD exacerbation Assessment & Plan: See pulmonary note. (7) Atrial fibrillation with rapid ventricular response Assessment & Plan: See cardiology note. Status: not improved Assessment/Plan See pulmonary note concerning comfort care. IMELDA COLEMAN Dec 24, 2016 12:55
[2016-12-24] MEDS ORDERED: Vancomycin 750mg/D5W 275ml IVPB SCH ×2 (13:00)
[2016-12-24] MEDS ORDERED: Vancomycin 750 MG in D5W 275 ML IVPB SCH ×4 (13:00)
[2016-12-24] MEDS ORDERED: DuoNeb 0.5-3(2.5)mg/3ml neb HHN PRN (14:00)
--- NOTE | 2016-12-24 15:13 | Cardiology Progress Note ---
Assessment/Plan Assessment/Plan afib rvr duratrion unkown ([facility] 05/2016) copd with exacerbation cad hs ppi hs cm hx? now on dying pt protochol dnr look morbibound will sign off Subjective ROS Limited/Unobtainable: Yes Objective Last 24 Hour Vital Signs Date Time Temp Pulse Resp B/P Pulse Ox O2 Delivery O2 Flow Rate FiO2 12/24/16 13:39 122 135/63 12/24/16 11:59 114 12/24/16 11:38 97.0 119 26 135/63 94 Nasal Cannula 4.0 12/24/16 11:24 114 24 98 Nasal Cannula 4.0 12/24/16 11:18 36 12/24/16 11:16 117 26 89 Nasal Cannula 4.0 36 12/24/16 08:53 97 Nasal Cannula 4.0 12/24/16 08:00 116 12/24/16 07:55 116 26 98 Nasal Cannula 4.0 36 12/24/16 07:52 97.3 113 28 121/79 91 Nasal Cannula 4.0 12/24/16 07:46 36 12/24/16 07:44 112 24 90 Nasal Cannula 4.0 36 12/24/16 07:43 Nasal Cannula 4.0 36 12/24/16 07:42 90 Nasal Cannula 4.0 36 12/24/16 06:26 123 148/76 12/24/16 06:02 123 26 100 Nasal Cannula 4.0 12/24/16 06:00 97.2 123 32 148/76 94 Nasal Cannula 4.0 12/24/16 05:46 116 25 92 Nasal Cannula 3.0 32 12/24/16 04:00 124 12/24/16 04:00 97.2 123 32 148/76 94 Nasal Cannula 4.0 12/24/16 02:48 121 26 100 Nasal Cannula 3.0 32 12/24/16 02:47 119 25 96 Nasal Cannula 3.0 32 12/24/16 00:16 120 26 100 Nasal Cannula 3.0 32 12/24/16 00:10 118 24 96 Nasal Cannula 3.0 32 12/24/16 00:00 97.7 119 32 139/71 96 Nasal Cannula 4.0 12/23/16 20:00 126 12/23/16 20:00 97.8 130 25 123/92 95 Nasal Cannula 3.0 12/23/16 18:43 112 28 100 Nasal Cannula 3.0 12/23/16 18:37 116 22 96 Nasal Cannula 3.0 12/23/16 18:36 96 Nasal Cannula 3.0 12/23/16 18:36 Nasal Cannula 3.0 12/23/16 16:42 117 12/23/16 16:00 97.4 120 19 130/83 95 Nasal Cannula 3.0 12/23/16 15:59 107 31 95 Facial 30 General Appearance: mild distress, other Neck: supple Cardiovascular: normal rate Respiratory/Chest: lungs clear, normal breath sounds, other - tachy-pneic with very ltterl air entry Abdomen: normal bowel sounds, non tender, soft Extremities: no swelling Intake and Output 12/23/16 12/24/16 19:00 07:00 Intake Total 250 ml 60 ml Output Total 240 ml 450 ml Balance 10 ml -390 ml Intake Oral 150 ml 60 ml IV Total 100 ml Output Urine Total 240 ml 450 ml # Bowel Movements 1 1 Laboratory Tests Test 12/24/16 03:35 White Blood Count 9.9 K/UL (4.8-10.8) Red Blood Count 5.08 M/UL (4.20-5.40) Hemoglobin 12.6 G/DL (12.0-16.0) Hematocrit 41.5 % (37.0-47.0) Mean Corpuscular Volume 82 FL (80-99) Mean Corpuscular Hemoglobin 24.9 PG (27.0-31.0) L Mean Corpuscular Hemoglobin Concent 30.5 G/DL (32.0-36.0) L Red Cell Distribution Width 18.0 % (11.6-14.8) H Platelet Count 193 K/UL (150-450) Mean Platelet Volume 8.9 FL (6.5-10.1) Neutrophils (%) (Auto) % (45.0-75.0) Lymphocytes (%) (Auto) % (20.0-45.0) Monocytes (%) (Auto) % (1.0-10.0) Eosinophils (%) (Auto) % (0.0-3.0) Basophils (%) (Auto) % (0.0-2.0) Differential Total Cells Counted 100 Neutrophils % (Manual) 94 % (45-75) H Lymphocytes % (Manual) 4 % (20-45) L Monocytes % (Manual) 2 % (1-10) Eosinophils % (Manual) 0 % (0-3) Basophils % (Manual) 0 % (0-2) Band Neutrophils 0 % (0-8) Platelet Estimate Adequate Platelet Morphology Normal Anisocytosis 2+ Sodium Level 145 mEQ/L (135-145) Potassium Level 4.6 mEQ/L (3.4-4.9) Chloride Level 95 mEQ/L (98-107) L Carbon Dioxide Level 32 mEQ/L (20-30) H Anion Gap 18 (5-15) H Blood Urea Nitrogen 28 mg/dL (7-23) H Creatinine 1.0 mg/dL (0.5-0.9) H Estimat Glomerular Filtration Rate mL/min (>60) Glucose Level 157 mg/dL (74-106) H Calcium Level 9.6 mg/dL (8.6-10.2) Troponin I < 0.30 ng/mL (<=0.30) Pro-B-Type Natriuretic Peptide 7242 pg/mL (0-450) H Thyroid Stimulating Hormone (TSH) 0.042 uIU/mL (0.300-4.500) Microbiology Date/Time Source Procedure Growth Status 12/23/16 04:37 Blood Blood Culture - Preliminary NO GROWTH AFTER 24 HOURS Resulted 12/23/16 04:20 Blood Blood Culture - Preliminary NO GROWTH AFTER 24 HOURS Resulted FARIBA GIORDANO Dec 24, 2016 15:13
[2016-12-24] MEDS ORDERED: Tubing IV Secondary IV ONE (16:25)
[2016-12-24] MEDS ORDERED: NS 275ml ONE (16:25)
[2016-12-24] MEDS: Morphine Sulfate 2mg/ml Inj IVP PRN ×2 (17:39→23:01)
[2016-12-25] VITALS (7 sets, daily range): BP systolic 90–123; BP diastolic 57–95
[2016-12-25] MEDS: Morphine Sulfate 2mg/ml Inj IVP PRN (02:25)
[2016-12-25] MEDS ORDERED: Promethazine/Codeine 5ml UD ORAL PRN (08:00)
[2016-12-25] MEDS ORDERED: DuoNeb 0.5-3(2.5)mg/3ml neb HHN PRN (08:00)
[2016-12-25] MEDS ORDERED: Nitroglycerin Subl 0.4mg tab (Bottle Of 25) SL PRN (08:00)
[2016-12-25 08:23] LABS: MEAN CORPUSCULAR HEMOGLOBIN 23.6 PG (27.0-31.0); MEAN CORPUSCULAR HGB CONC 28.5 G/DL (32.0-36.0); MEAN CORPUSCULAR VOLUME 83 FL (80-99); MEAN PLATELET VOLUME 9.1 FL (6.5-10.1); PLATELET COUNT 186 K/UL (150-450); RED BLOOD COUNT 5.08 M/UL (4.20-5.40); RED CELL DISTRIBUTION WIDTH 18.4 % (11.6-14.8); WHITE BLOOD COUNT 13.7 K/UL (4.8-10.8)
[2016-12-25] MEDS ORDERED: LORazepam Inj 2mg/ml 1ml IV PRN (08:30)
[2016-12-25] MEDS ORDERED: Norco 5mg/325mg tab ORAL PRN (08:30)
[2016-12-25] MEDS ORDERED: Morphine Sulfate 2mg/ml Inj IVP PRN ×2 (08:30→09:15)
[2016-12-25 08:37] LABS: ANION GAP 12 (5-15); CALCIUM 9.2 mg/dL (8.6-10.2); CARBON DIOXIDE 37 mEQ/L (20-30); CHLORIDE 98 mEQ/L (98-107); CREATININE 2.2 mg/dL (0.5-0.9); HEMOLYSIS 2; POTASSIUM 5.5 mEQ/L (3.4-4.9); SODIUM 147 mEQ/L (135-145)
[2016-12-25] MEDS ORDERED: Theophylline ER 100mg ORAL SCH (09:00)
[2016-12-25] MEDS ORDERED: Docusate 100mg cap ORAL SCH (09:00)
[2016-12-25] MEDS ORDERED: Aspirin Baby 81mg ORAL SCH (09:00)
[2016-12-25 10:48] LABS: BAND NEUTROPHILS % (MANUAL) 1 % (0-8); LYMPHOCYTES % (MANUAL) 5 % (20-45); NEUTROPHILS % (MANUAL) 89 % (45-75); TOTAL CELLS COUNTED 100
[2016-12-25 10:49] LABS: ANISOCYTOSIS 1+; BASOPHILS % (MANUAL) 0 % (0-2); EOSINOPHILS % (MANUAL) 0 % (0-3); PLATELET ESTIMATE ADEQUATE; PLATELET MORPHOLOGY NORMAL
--- NOTE | 2016-12-25 11:10 | Internal Med Progress Note ---
Subjective Date of Service: Dec 25, 2016 Physician Name Ayo Coleman Attending Physician Erick Beatty MD Current Medications Medications (Trade) Dose Ordered Sig/Katarzyna Route PRN Reason Start Time Stop Time Status Last Admin Dose Admin Morphine Sulfate (Morphine Sulfate) 2 mg Q1H PRN IVP For Pain (Comfort Measures) 12/25/16 09:15 01/01/17 09:14 Ondansetron HCl (Zofran) 4 mg Q6H PRN IVP Nausea & Vomiting 12/25/16 08:30 01/24/17 08:29 Allergies: Coded Allergies: PENICILLINS (Verified Allergy, Unknown, Rash, 12/23/16) ROS Limited/Unobtainable: Yes Subjective 81 YO F admitted for shortness of breath and COPD exacerbation. Cover for Int Med-Dr Beatty. Agonal breathing on 100% non rebreather. Lethargic Objective Last Vital Signs Date Time Temp Pulse Resp B/P Pulse Ox O2 Delivery O2 Flow Rate FiO2 12/25/16 08:10 97.5 115 20 118/86 97 Venturi Mask 15.0 12/24/16 23:19 100 Laboratory Tests Test 12/25/16 06:45 White Blood Count 13.7 K/UL (4.8-10.8) H Red Blood Count 5.08 M/UL (4.20-5.40) Hemoglobin 12.0 G/DL (12.0-16.0) Hematocrit 42.0 % (37.0-47.0) Mean Corpuscular Volume 83 FL (80-99) Mean Corpuscular Hemoglobin 23.6 PG (27.0-31.0) L Mean Corpuscular Hemoglobin Concent 28.5 G/DL (32.0-36.0) L Red Cell Distribution Width 18.4 % (11.6-14.8) H Platelet Count 186 K/UL (150-450) Mean Platelet Volume 9.1 FL (6.5-10.1) Neutrophils (%) (Auto) % (45.0-75.0) Lymphocytes (%) (Auto) % (20.0-45.0) Monocytes (%) (Auto) % (1.0-10.0) Eosinophils (%) (Auto) % (0.0-3.0) Basophils (%) (Auto) % (0.0-2.0) Differential Total Cells Counted 100 Neutrophils % (Manual) 89 % (45-75) H Lymphocytes % (Manual) 5 % (20-45) L Monocytes % (Manual) 5 % (1-10) Eosinophils % (Manual) 0 % (0-3) Basophils % (Manual) 0 % (0-2) Band Neutrophils 1 % (0-8) Platelet Estimate Adequate Platelet Morphology Normal Basophilic Stippling Occasional Anisocytosis 1+ Sodium Level 147 mEQ/L (135-145) H Potassium Level 5.5 mEQ/L (3.4-4.9) H Chloride Level 98 mEQ/L (98-107) Carbon Dioxide Level 37 mEQ/L (20-30) H Anion Gap 12 (5-15) Blood Urea Nitrogen 58 mg/dL (7-23) #H Creatinine 2.2 mg/dL (0.5-0.9) #H Estimat Glomerular Filtration Rate mL/min (>60) Glucose Level 139 mg/dL (74-106) H Calcium Level 9.2 mg/dL (8.6-10.2) Microbiology Date/Time Source Procedure Growth Status 12/23/16 04:37 Blood Blood Culture - Preliminary NO GROWTH AFTER 48 HOURS Resulted 12/23/16 04:20 Blood Blood Culture - Preliminary NO GROWTH AFTER 48 HOURS Resulted Intake and Output 12/24/16 12/25/16 19:00 07:00 Intake Total 240 ml Output Total 100 ml 50 ml Balance -100 ml 190 ml Intake Oral 240 ml Output Urine Total 100 ml 50 ml # Voids 3 # Bowel Movements 1 Objective General Appearance: moderate distress, thin EENT: PERRL/EOMI, normal ENT inspection Neck: non-tender, normal alignment, supple Cardiovascular: no gallop/murmur, no JVD, tachycardia Respiratory/Chest: respiratory distress, crackles/rales, rhonchi - bilaterally , expiratory wheezing. Agonal breathing pattern Abdomen: normal bowel sounds, non tender, soft, no organomegaly, no mass Extremities: normal range of motion Skin: normal pigmentation, warm/dry Assessment/Plan Problem List: (1) Shortness of breath (2) Respiratory failure (3) Hypoxia (4) HTN (hypertension) Assessment & Plan: Cont cardizem per cardiology (5) Sick sinus syndrome (6) COPD exacerbation Assessment & Plan: See pulmonary note. (7) Atrial fibrillation with rapid ventricular response Assessment & Plan: See cardiology note. Status: deteriorating Assessment/Plan Prognosis is extremely grave. Appears actively dying with agonal breathing-See pulmonary note concerning comfort care. AYO COLEMAN Dec 25, 2016 11:10
--- NOTE | 2016-12-25 17:17 | Pulmonology Progress Note ---
Assessment/Plan Problems: (1) Respiratory distress (2) COPD exacerbation (3) Severe protein-calorie malnutrition (4) COPD (chronic obstructive pulmonary disease) Assessment/Plan Pt doesn't want most of her meds including steroids and antibiotics Continue respiratory treatment add morphine for dyspnea. med/surg Subjective ROS Limited/Unobtainable: Yes Neurologic: Reports: confusion, syncope Allergies: Coded Allergies: PENICILLINS (Verified Allergy, Unknown, Rash, 12/23/16) Objective Last 24 Hour Vital Signs Date Time Temp Pulse Resp B/P Pulse Ox O2 Delivery O2 Flow Rate FiO2 12/25/16 12:00 95.5 59 18 123/74 100 12/25/16 08:10 97.5 115 20 118/86 97 Venturi Mask 15.0 12/25/16 06:00 118 106/70 12/25/16 04:00 118 12/25/16 04:00 97.0 94 20 106/70 98 Non-Rebreather 12/25/16 00:00 118 12/25/16 00:00 98.4 117 20 115/95 100 Non-Rebreather 12/24/16 23:19 Non-Rebreather 15.0 100 12/24/16 21:10 119 20 99 Facial 100 12/24/16 20:00 112 12/24/16 19:14 Bi-pap 100 12/24/16 19:14 99 Bi-pap 100 12/24/16 19:14 121 23 99 Facial 100 12/24/16 19:00 97.5 115 20 102/65 100 Nasal Cannula 12/24/16 18:09 96.3 Intake and Output 12/24/16 12/25/16 19:00 07:00 Intake Total 240 ml Output Total 100 ml 50 ml Balance -100 ml 190 ml Intake Oral 240 ml Output Urine Total 100 ml 50 ml # Voids 3 # Bowel Movements 1 General Appearance: no acute distress HEENT: normocephalic, atraumatic, PERRL Respiratory/Chest: chest wall non-tender, decreased breath sounds, accessory muscle use, crackles/rales, rhonchi, stridor, expiratory wheezing, inspiratory wheezing, pleural rub Breasts: no masses Cardiovascular: no JVD, tachycardia Abdomen: absent bowel sounds, distended, guarding, tender, rebound tenderness Genitourinary: normal external genitalia Extremities: no cyanosis Skin: rash, lesions Neurologic/Psychiatric: unresponsiveness Microbiology Date/Time Source Procedure Growth Status 12/23/16 04:37 Blood Blood Culture - Preliminary NO GROWTH AFTER 48 HOURS Resulted 12/23/16 04:20 Blood Blood Culture - Preliminary NO GROWTH AFTER 48 HOURS Resulted Laboratory Tests 12/25/16 06:45: White Blood Count 13.7H, Red Blood Count 5.08, Hemoglobin 12.0, Hematocrit 42.0 , Mean Corpuscular Volume 83, Mean Corpuscular Hemoglobin 23.6L, Mean Corpuscular Hemoglobin Concent 28.5L, Red Cell Distribution Width 18.4H, Platelet Count 186, Mean Platelet Volume 9.1, Neutrophils (%) (Auto) , Lymphocytes (%) (Auto) , Monocytes (%) (Auto) , Eosinophils (%) (Auto) , Basophils (%) (Auto) , Differential Total Cells Counted 100, Neutrophils % ( Manual) 89H, Lymphocytes % (Manual) 5L, Monocytes % (Manual) 5, Eosinophils % ( Manual) 0, Basophils % (Manual) 0, Band Neutrophils 1, Platelet Estimate Adequate, Platelet Morphology Normal, Basophilic Stippling Occasional, Anisocytosis 1+, Sodium Level 147H, Potassium Level 5.5H, Chloride Level 98, Carbon Dioxide Level 37H, Anion Gap 12, Blood Urea Nitrogen 58#H, Creatinine 2.2 #H, Estimat Glomerular Filtration Rate , Glucose Level 139H, Calcium Level 9.2 Current Medications Medications (Trade) Dose Ordered Sig/Katarzyna Route PRN Reason Start Time Stop Time Status Last Admin Dose Admin Morphine Sulfate (Morphine Sulfate) 2 mg Q1H PRN IVP For Pain (Comfort Measures) 12/25/16 09:15 01/01/17 09:14 12/25/16 16:28 Ondansetron HCl (Zofran) 4 mg Q6H PRN IVP Nausea & Vomiting 12/25/16 08:30 01/24/17 08:29 MUKUND TANNER Dec 25, 2016 17:17
[2016-12-25] MEDS ORDERED: Rate Change Narcotic Drip MISC PRN (17:30)
[2016-12-25] MEDS ORDERED: Morphine Sulfate 4mg/ml Inj SUBQ PRN (17:45)
[2016-12-25] MEDS: PCA Morphine 1mg/ml 30 ML IV PRN (19:07)
[2016-12-25] MEDS ORDERED: Zolpidem 5mg tab ORAL PRN (21:00)
[2016-12-25] MEDS: Narcotic Shift Volume MISC SCH (23:03)
[2016-12-26] MEDS: PCA Morphine 1mg/ml 30 ML IV PRN ×3 (01:14→14:02)
[2016-12-26] MEDS: Narcotic Shift Volume MISC SCH ×2 (07:00→15:18)
[2016-12-26 08:55] VITALS: BP 94/53
[2016-12-26 12:33] VITALS: BP 142/55
[2016-12-26 16:00] VITALS: BP 48/32
[2016-12-26] MEDS ORDERED: NS 275ml ONE ×2 (16:51→19:59)
[2016-12-26] MEDS ORDERED: NS 550ML IV ONE (16:51)
--- NOTE | 2016-12-26 19:12 | Internal Med Progress Note ---
Subjective Date of Service: Dec 26, 2016 Physician Name Ayo Reddy Attending Physician Erick Beatty MD Current Medications Medications (Trade) Dose Ordered Sig/Katarzyna Route PRN Reason Start Time Stop Time Status Last Admin Dose Admin Miscellaneous Medication (Narcotic Drip Rate Change) 1 ea DAILY PRN MISC PER PROTOCOL 12/25/16 17:30 01/24/17 17:29 Miscellaneous Medication (Narcotic Shift Volume) 1 ea Q8HR@07,15,23 MISC 12/25/16 23:00 01/24/17 22:59 12/26/16 15:18 Morphine Sulfate (Morphine Sulfate) 4 mg Q3H PRN SUBQ Severe Pain (Pain Scale 7-10) 12/25/16 17:45 12/27/16 17:44 Morphine Sulfate (COUPON COLLECTION CLERK Morphine) 30 ml @ 0 mls/hr COUPON COLLECTION CLERK Protocol PRN IV For Pain 12/25/16 17:30 12/27/16 17:29 12/26/16 14:02 Ondansetron HCl 4 mg 4 mg Q6H PRN IVP Nausea & Vomiting 12/25/16 08:30 01/24/17 08:29 Allergies: Coded Allergies: PENICILLINS (Verified Allergy, Unknown, Rash, 12/23/16) ROS Limited/Unobtainable: Yes Subjective 81 YO F admitted for shortness of breath and COPD exacerbation. Cover for Int Med-Dr Beatty. Agonal breathing on 100% non rebreather. Lethargic. Now on morphine drip. Objective Last Vital Signs Date Time Temp Pulse Resp B/P Pulse Ox O2 Delivery O2 Flow Rate FiO2 12/26/16 16:00 16 12/26/16 16:00 94.0 99 48/32 Simple Mask 10.0 12/26/16 12:33 89 12/26/16 07:49 100 Intake and Output 12/25/16 12/26/16 19:00 07:00 Intake Total 0 ml Output Total 80 ml Balance -80 ml Intake Oral 0 ml Output Urine Total 80 ml Objective General Appearance: moderate distress, thin EENT: PERRL/EOMI, normal ENT inspection Neck: non-tender, normal alignment, supple Cardiovascular: no gallop/murmur, no JVD, tachycardia Respiratory/Chest: respiratory distress, crackles/rales, rhonchi - bilaterally , expiratory wheezing. Agonal breathing pattern Abdomen: normal bowel sounds, non tender, soft, no organomegaly, no mass Extremities: normal range of motion Skin: normal pigmentation, warm/dry Assessment/Plan Problem List: (1) Shortness of breath (2) Respiratory failure (3) Hypoxia (4) HTN (hypertension) Assessment & Plan: Cont cardizem per cardiology (5) Sick sinus syndrome (6) COPD exacerbation Assessment & Plan: See pulmonary note. (7) Atrial fibrillation with rapid ventricular response Assessment & Plan: See cardiology note. Status: deteriorating Assessment/Plan Prognosis is extremely grave. Appears actively dying with agonal breathing-See pulmonary note concerning comfort care, including morphine AYO Esteves Dec 26, 2016 19:12
--- NOTE | 2016-12-27 23:38 | Cardiology Report ---
APPROVED REPORT EKG Measurement Heart [id number] OR [id number] Sinus tachycardia with premature supraventricular complexes and with occasional premature ventricular complexes Left anterior fascicular block T wave abnormality, consider lateral ischemia Abnormal ECG
--- NOTE | 2016-12-28 07:49 | Cardiology Report ---
APPROVED REPORT EXAM: Two-dimensional and M-mode echocardiogram with Doppler and color Doppler. INDICATION Chest Pain M-Mode DIMENSIONS IVSd0.8 (0.7-1.1cm)Left Atrium (MM)2.5 (1.6-4.0cm) LVDd4.2 (3.5-5.6cm)Aortic Root2.4 (2.0-3.7cm) PWd0.9 (0.7-1.1cm)Aortic Cusp Exc.1.8 (1.5-2.0cm) LVDs2.3 (2.5-4.0cm) PWs1.0 cm Technically difficult study due to poor acoustic windows. Limited study due to patients breathing.Lack of apical windows. Normal left ventricular chamber size, systolic function and wall motion. Left ventricular ejection fraction estimated to be 55-60%. Mild left ventricular hypertrophy. Moderate circumferential pericardial effusion. Focal aortic valve sclerosis with adequate cusp excursion Thickened mitral valve leaflets with normal excursion. Mitral annulus and aortic root calcification. Pulmonic valve not well visualized. Normal tricuspid valve structure. IVC not obtainable. Probable pacemaker wire present in the right side chambers. A color flow and spectral Doppler study was performed and revealed: Trace tricuspid regurgitation. Tricuspid systolic velocities suggests peak right ventricular systolic pressure of 23 mmHg Pulmonic regurgitation present.
--- NOTE | 2016-12-28 13:11 | Discharge Summary ---
Discharge Summary Hospital Course Date of Admission Dec 23, 2016 at 08:47 Date of Discharge Dec 26, 2016 at 20:00 Admitting Diagnosis COPD, rapid afib HPI Olivia Downs is a 81 year old female who was admitted on Dec 23, 2016 at 08: 47 for Chronic Obstructive Pulmonary Disease,Rapid Afib Hospital Course [id number] Discharge Discharge Disposition Patient Discharge Diagnoses: Petty Wynn NP Dec 28, 2016 13:11
--- NOTE | 2016-12-28 23:10 | Discharge Summary 2 SIG ---
DATE OF ADMISSION: 12/23/2016 DATE OF DISCHARGE: 12/26/2016 CONSULTANTS: 1. Pastora Nixon M.D. 2. Hernando Manuel M.D. BRIEF SUMMARY: The patient was an 81-year-old female, who was a resident of [facility], who was transferred to [facility] for shortness of breath. She was found to be hypoxic. She has a past medical history significant for COPD. On evaluation at ED, she was found to be in rapid atrial fibrillation and in respiratory distress. She was dyspneic, but refusing BiPAP or intubation and refused medications. Chest x-ray showed no acute disease. She continued to have a grave prognosis and was given comfort care with BOW MA[employer]ER GIFT WRAPPING morphine drip. The patient was placed on dying protocol and the patient eventually . FINAL DIAGNOSES: 1. Acute respiratory failure. 2. Chronic obstructive pulmonary disease exacerbation. 3. Atrial fibrillation with rapid ventricular response. 4. Sick sinus syndrome. 5. Hypertension. 6. Severe protein-calorie malnutrition. 7. Palliative dying protocol/comfort care. Erick Beatty M.D. I have been assigned to dictate discharge summary on this account and I was not involved in the patient's management. Petty Wynn N.P. DR: GRECIA JOB#: [id number] CC:
== END 2016-12-26 20:00 | disposition expired | DRG 190 ==
LOC: EDBD 04:29 → EMR 04:37 → EDBEDREQ 08:40 → 2W 08:47 → 2E 12-24 06:31 → 4W 12-25 07:38
DX: J44.1 Chronic obstructive pulmonary disease with (acute) exacerbation (principal); J96.01 Acute respiratory failure with hypoxia; E43 Unspecified severe protein-calorie malnutrition; I27.2 Other secondary pulmonary hypertension; I42.9 Cardiomyopathy, unspecified; I48.91 Unspecified atrial fibrillation; I49.5 Sick sinus syndrome; I50.9 Heart failure, unspecified; Z51.5 Encounter for palliative care; I10 Essential (primary) hypertension; Z66 Do not resuscitate; Z68.21 Body mass index [BMI] 21.0-21.9, adult; Z88.0 Allergy status to penicillin; Z53.29 Procedure and treatment not carried out because of patient's decision for other reasons; Z87.891 Personal history of nicotine dependence; Z79.02 Long term (current) use of antithrombotics/antiplatelets; Z95.0 Presence of cardiac pacemaker; I25.10 Atherosclerotic heart disease of native coronary artery without angina pectoris
CPT/HCPCS: 36415; 71010; 80048; 80053; 81003; 82550; 82553; 82962; 83605; 83880; 84443; 84484; 85007; 85025; 87040; 93005; 93306; 94640; 94664; 94760; J1815; J7620